=== PATIENT | female | born 1980 | race American Indian/Alaskan Native ===

== ENCOUNTER 2020-08-16 21:56 | Emergency (ER) | payer MEDICAID ==
[~2020-08-16] VITALS: Ht 165.1 cm; Wt 93.2 kg
[~2020-08-16 21:56] MED LIST: HYDR-4383 PO
[2020-08-16 22:25] VITALS: BP 118/76
[2020-08-17] MEDS ORDERED: LIDOcaine 5% patch TP ONE (00:39)
[2020-08-17] MEDS ORDERED: ketorolac tromethamine 15mg/ml inj. IM ONE (00:40)
[2020-08-17] MEDS ORDERED: diazepam 5mg tablet PO ONE (00:40)
[2020-08-17] MEDS ORDERED: ketorolac trometh. 30mg/ml inj. IM ONE (00:40)
== END 2020-08-17 01:00 | disposition home or self-care (01) ==
LOC: ER 21:56
DX: M54.89 Other dorsalgia (principal); M62.830 Muscle spasm of back; Z72.89 Other problems related to lifestyle; Z88.1 Allergy status to other antibiotic agents; Z88.8 Allergy status to other drugs, medicaments and biological substances; Z79.899 Other long term (current) drug therapy
CPT/HCPCS: 96372; 99283; J1885